=== PATIENT | male | born 1955 | race Caucasian/White ===

== ENCOUNTER 2020-07-16 08:00 | Day surgery (SDC) | payer MEDICAID ==
[~2020-07-16] VITALS: Ht 170.2 cm; Wt 102.3 kg
[2020-07-16 08:11] LABS: BASOPHILS 0.2 % (0-2); HEMATOCRIT 44.7 % (42.0-54.0); HEMOGLOBIN 14.3 g/dL (13.5-17.5); IMMATURE GRANULOCYTES 0.3 % (0-5); LYMPHOCYTE ABS# 2.31 10x3/uL (1.32-3.57); LYMPHOCYTES 26.1 % (15-50); MCH 27.4 pg (26.0-34.0); MCV 85.6 fL (80.0-100.0); MEAN PLATELET VOLUME 8.7 fL (7.4-10.4); MONOCYTES 8.4 % (2-11); NEUTROPHIL ABS# 5.67 10x3/uL (1.78-5.38); PLATELET COUNT 344 10x3/uL (130-400); RBC 5.22 10x6/uL (4.20-6.10); RDW 13.4 % (11.5-14.5); WBC 8.9 10x3/uL (4.8-10.8)
[2020-07-16 08:36] LABS: CALC OSMOLALITY 282 mosm/kg (275-300); CALCIUM 8.7 mg/dL (8.5-10.1); CHLORIDE - SERUM 101 mmol/L (98-107); GLUCOSE 115 mg/dL (74-106); POTASSIUM - SERUM 3.6 mmol/L (3.5-5.1); SODIUM 139 mmol/L (136-145); UREA NITROGEN 23 mg/dL (7-18); eGFR NON AFRICAN AMERICAN 80 mL/min (90-120)
[2020-07-16] MEDS ORDERED: HCTZ25 MG PO (09:32)
[2020-07-16] MEDS ORDERED: OMEPRAZOLE20 M1 PO (09:32)
[2020-07-16] MEDS ORDERED: SYMBICORT 16010.2 GM INH (09:33)
[2020-07-16] MEDS ORDERED: FLUTICASONE PRO16 GM NASAL (09:35)
[2020-07-16] MEDS ORDERED: LIPITOR40 MG PO (09:35)
[2020-07-16] MEDS ORDERED: HYDROCODON-ACE1 EA10 PO (09:36)
[2020-07-16] MEDS ORDERED: SINGULAIR10 MG PO (09:36)
[2020-07-16] MEDS ORDERED: DITROPAN XL 1010 MG PO (09:37)
[2020-07-16 09:52] VITALS: Ht 170.2 cm; Wt 102.3 kg
--- NOTE | 2020-07-16 11:24 | NUR ---
DC INSTRUCTIONS WITH PT AND BROTHER, PIV DC'D, PT GETTING DRESSED 1142 DR INFANTE TO BEDSIDE 1148 DC'D HOME BY WC ACCOMPANIED BY THIS NURSE. ALL BELONGINGS WITH PT.
== END 2020-07-16 11:48 | disposition home or self-care (01) ==
LOC: D.OPS 08:00
PROVIDERS: ATTEND Internal Medicine Gastroenterology
DX: R05 Cough (principal); K21.9 Gastro-esophageal reflux disease without esophagitis